=== PATIENT | female | born 1990 | race Caucasian/White ===

== ENCOUNTER → 2022-10-06 | Outpatient (CLI) | payer OTHER ==
[~2022-10-06] MED LIST: ANUS2.5C2 PR; DOCU5LIQ PO; IBUP80TA PO; LANOOIL2 TOP; MAPA500T17 PO; MOM30SS PO; MOTR200T44 PO; PRENTAB74 PO
[2022-10-06 14:16] LABS: FREE T4 1.04 NG/DL (0.89-1.76); THYROID STIMULATING HORMONE 2.308 uIU/ML (0.55-4.78)
[2022-10-06 14:17] LABS: ALBUMIN 3.9 G/DL (3.2-5.2); ALKALINE PHOSPHATASE 80 U/L (46-116); ALT/SGPT 29 U/L (7.0-40); AST/SGOT 17 U/L (<34); BILIRUBIN,TOTAL 0.4 MG/DL (0.3-1.2); BLOOD UREA NITROGEN 10 MG/DL (9-23); CALCIUM LEVEL 9.3 MG/DL (8.5-10.1); CARBON DIOXIDE LEVEL 25 MMOL/L (20-31); CHLORIDE LEVEL 106 MMOL/L (98-107); GLOMERULAR FILTRATION RATE > 60.0 (>60); GLUCOSE, FASTING 111 MG/DL (60-100); POTASSIUM SERUM 4.4 MMOL/L (3.5-5.1); SODIUM LEVEL 141 MMOL/L (136-145)
[2022-10-06 14:27] LABS: BASO # 0.1 10^3/uL (0.0-0.2); BASO % 0.6 % (0.0-1.0); EOS # 0.1 10^3/uL (0.0-0.5); EOS % 1.2 % (0.0-3.0); HEMATOCRIT 44.3 % (36.0-47.0); HEMOGLOBIN 13.9 g/dl (12.0-15.5); LYMPH # 1.9 10^3/uL (1.5-5.0); MEAN CORPUSCULAR HEMOGLOBIN 28.4 pg (27.0-33.0); MEAN CORPUSCULAR HGB CONC 31.4 g/dl (32.0-36.5); MEAN CORPUSCULAR VOLUME 90.6 fl (80.0-96.0); MONO # 0.6 10^3/uL (0.0-0.8); NEUTROPHILS # 7.8 10^3/uL (1.5-8.5); NEUTROPHILS % 73.2 % (36.0-66.0); PLATELET COUNT, AUTOMATED 285 10^3/uL (150-450); RED BLOOD COUNT 4.89 10^6/uL (4.00-5.40); WHITE BLOOD COUNT 10.7 10^3/uL (4.0-10.0)
== END ==
LOC: M PLALAB 09:52
PROVIDERS: ATTEND Nurse Practitioner Family
DX: R63.5 Abnormal weight gain (principal)

== ENCOUNTER → 2022-10-08 | Outpatient (CLI) | payer OTHER ==
[2022-10-08 13:54] LABS: HEMOGLOBIN A1c 5.1 % (4.0-6.0)
== END ==
LOC: M PLALAB 11:16
PROVIDERS: ATTEND Nurse Practitioner Family
DX: R73.01 Impaired fasting glucose (principal)

== ENCOUNTER → 2022-11-18 | Outpatient (REF) | payer OTHER | LOC: M LAB REF 17:09 | PROVIDERS: ATTEND Nurse Practitioner Family | DX: Z01.419 Encounter for gynecological examination (general) (routine) without abnormal findings (principal); J02.9 Acute pharyngitis, unspecified ==

== ENCOUNTER → 2023-10-28 | Outpatient (REF) | payer OTHER | LOC: M LAB REF 16:55 | PROVIDERS: ATTEND Registered Nurse | DX: R30.0 Dysuria (principal) ==

== ENCOUNTER → 2024-02-09 | Outpatient (REF) | payer OTHER | LOC: M LAB REF 17:25 | PROVIDERS: ATTEND Registered Nurse | DX: R35.0 Frequency of micturition (principal) ==

== ENCOUNTER → 2024-06-06 | Outpatient (CLI) | payer OTHER ==
[2024-06-06 13:02] LABS: BASO # 0.1 10^3/uL (0.0-0.2); BASO % 0.5 % (0.0-1.0); EOS # 0.1 10^3/uL (0.0-0.5); EOS % 0.7 % (0.0-3.0); HEMATOCRIT 43.3 % (36.0-47.0); LYMPH % 20.8 % (24.0-44.0); MEAN CORPUSCULAR HEMOGLOBIN 28.4 pg (27.0-33.0); MEAN CORPUSCULAR HGB CONC 32.3 g/dl (32.0-36.5); MEAN CORPUSCULAR VOLUME 87.8 fl (80.0-96.0); MONO # 0.6 10^3/uL (0.0-0.8); MONO % 6.6 % (2.0-8.0); NEUTROPHILS # 6.8 10^3/uL (1.5-8.5); NEUTROPHILS % 70.1 % (36.0-66.0); PLATELET COUNT, AUTOMATED 326 10^3/uL (150-450); RED BLOOD COUNT 4.93 10^6/uL (4.00-5.40); WHITE BLOOD COUNT 9.7 10^3/uL (4.0-10.0)
[2024-06-06 13:11] LABS: HEMOGLOBIN A1c 5.1 % (4.0-6.0)
[2024-06-06 13:27] LABS: ALBUMIN 3.8 G/DL (3.2-5.2); ALKALINE PHOSPHATASE 87 U/L (35-104); ALT/SGPT 33 U/L (7.0-40); AST/SGOT 14 U/L (<34); BILIRUBIN,TOTAL 0.8 MG/DL (0.3-1.2); BLOOD UREA NITROGEN 10 MG/DL (9-23); CALCIUM LEVEL 9.7 MG/DL (8.5-10.1); CARBON DIOXIDE LEVEL 26 MMOL/L (20-31); CHLORIDE LEVEL 109 MMOL/L (98-107); CREATININE FOR GFR 0.91 MG/DL (0.55-1.30); GLOMERULAR FILTRATION RATE > 60.0 (>60); GLUCOSE, FASTING 86 MG/DL (60-100); POTASSIUM SERUM 4.6 MMOL/L (3.5-5.1); SODIUM LEVEL 139 MMOL/L (136-145); TOTAL PROTEIN 7.8 G/DL (5.7-8.2)
[2024-06-06 13:28] LABS: THYROGLOBULIN ANTIBODY < 15.0 U/ML (<60.0); THYROID STIMULATING HORMONE 2.734 uIU/ML (0.55-4.78)
[2024-06-06 13:29] LABS: FREE T4 1.22 NG/DL (0.89-1.76)
== END ==
LOC: M PLALAB 11:43
PROVIDERS: ATTEND Registered Nurse
DX: R53.83 Other fatigue (principal)

== ENCOUNTER 2025-02-21 07:36 | Inpatient (IN) | payer OTHER ==
[~2025-02-21] VITALS: Ht 165.1 cm; Wt 84.4 kg
[2025-02-21] MEDS ORDERED: SERT25TA21 PO (07:42)
[2025-02-21] MEDS ORDERED: NORE1TAB7 PO (07:42)
[2025-02-21 08:08] LABS: BASO # 0.0 10^3/uL (0.0-0.2); BASO % 0.3 % (0.0-1.0); EOS # 0.1 10^3/uL (0.0-0.5); EOS % 0.7 % (0.0-3.0); LYMPH # 1.9 10^3/uL (1.5-5.0); LYMPH % 16.4 % (24.0-44.0); MONO # 0.9 10^3/uL (0.0-0.8); MONO % 7.5 % (2.0-8.0); NEUTROPHILS # 8.4 10^3/uL (1.5-8.5); NEUTROPHILS % 74.6 % (36.0-66.0); PLATELET COUNT, AUTOMATED 208 10^3/uL (150-450)
[2025-02-21] MEDS: PANTOPRAZOLE 40MG VIAL IV ONE (08:11)
[2025-02-21 08:40] LABS: ALT/SGPT 24 U/L (7.0-40); AST/SGOT 20 U/L (<34); CALCIUM LEVEL 9.1 MG/DL (8.5-10.1); CARBON DIOXIDE LEVEL 24 MMOL/L (20-31); CHLORIDE LEVEL 104 MMOL/L (98-107); CREATININE FOR GFR 0.81 MG/DL (0.55-1.30); GLOMERULAR FILTRATION RATE > 90.0 (>60); HCG, SERUM QUANTITATIVE < 2.6 MIU/ML (<4.2); POTASSIUM SERUM 3.9 MMOL/L (3.5-5.1); SODIUM LEVEL 139 MMOL/L (136-145)
[2025-02-21] MEDS ORDERED: ISOVUE-370 76% 100 ML VIAL As Ordered ONE (08:48)
[2025-02-21 09:16] LABS: PROTEIN, URINE MANUAL REFLEX 1+ mg/dL (NEGATIVE); SP GRAVITY,URINE MANUAL REFLEX 1.025 (1.002-1.035)
[2025-02-21 09:17] LABS: KETONE, URINE MANUAL REFLEX NEGATIVE (NEGATIVE); NITRITE, URINE MANUAL RFX NEGATIVE (NEGATIVE); UROBILINOGEN, UA MANUAL REFLEX NORMAL (NORMAL)
[2025-02-21 09:25] LABS: WBC, URINE MAN RFX 40-50 /hpf (0-3)
[2025-02-21 09:26] LABS: HYALINE CAST, URINE RFX NONE SEEN /lpf (0-1); MICROSCOPIC EXAM RFX PERFORMED; SQUAMOUS EPITHELIAL URINE RFX LARGE AMOUNT /hpf (SMALL AMT)
[2025-02-21] MEDS ORDERED: HOME MED LIST COMPLETE! XX SCH (10:05)
[2025-02-21 10:11] LABS: INR 0.97
[2025-02-21] MEDS: ENOXAPARIN 100 MG/1 ML SYRINGE (J1650 PER 10MG) SC ONE (10:24)
[2025-02-21 11:14] LABS: C REACTIVE PROTEIN QUANTITATIV 8.06 MG/DL (<1.0)
[2025-02-21 11:23] LABS: ERYTHROCYTE SEDIMENTATION RATE 42 mm/hr (0-20)
[2025-02-21] MEDS: NS (Normal Saline) 0.9% 1,000 ML IV SCH (11:50)
[2025-02-21 13:05] VITALS: BP 132/81; TEMP 98.1; O2SAT 97
[2025-02-21] MEDS: MORPHINE 2 MG/ML 1 ML VIAL IV PRN (13:36)
[2025-02-21 19:55] VITALS: BP 118/80; TEMP 98.8; O2SAT 98
[2025-02-21] MEDS: ENOXAPARIN 80 MG/0.8 ML SYRINGE (J1650 PER 10MG) SC SCH (22:40)
[2025-02-22 04:20] VITALS: BP 114/58; TEMP 98.8; O2SAT 97
[2025-02-22 06:05] LABS: PLATELET COUNT, AUTOMATED 186 10^3/uL (150-450)
[2025-02-22 06:19] LABS: CALCIUM LEVEL 8.5 MG/DL (8.5-10.1); CARBON DIOXIDE LEVEL 26 MMOL/L (20-31); CHLORIDE LEVEL 106 MMOL/L (98-107); CREATININE FOR GFR 0.79 MG/DL (0.55-1.30); GLOMERULAR FILTRATION RATE > 90.0 (>60); MAGNESIUM LEVEL 1.8 MG/DL (1.8-2.4); POTASSIUM SERUM 4.1 MMOL/L (3.5-5.1); SODIUM LEVEL 141 MMOL/L (136-145)
[2025-02-22] MEDS: CEFDINIR 300 MG CAP PO SCH (09:44)
[2025-02-22] MEDS: PANTOPRAZOLE 40MG VIAL IV SCH (09:44)
[2025-02-22 12:00] VITALS: BP 130/89; TEMP 98.1; O2SAT 97
[2025-02-22] MEDS: ONDANSETRON 4MG 2ML VIAL IV PRN (16:55)
[2025-02-22] MEDS: KETOROLAC 30 MG/ML 1 ML VIAL IV SCH (16:55)
[2025-02-22 18:51] LABS: CARDIOLIPIN IGA ANTIBODY < 2.0 APL-U/mL (<20.0); CARDIOLIPIN IGG ANTIBODY < 2.0 GPL-U/mL (<20.0); CARDIOLIPIN IGM ANTIBODY < 2.0 MPL-U/mL (<20.0)
[2025-02-22 20:06] VITALS: BP 125/85; TEMP 98.1; O2SAT 97
[2025-02-22] MEDS: ACETAMINOPHEN 325 MG TAB PO PRN (20:23)
[2025-02-23 03:50] VITALS: BP 111/69; TEMP 97.9; O2SAT 98
[2025-02-23 12:00] VITALS: BP 111/70; TEMP 98.4; O2SAT 97
[2025-02-23 20:23] VITALS: BP 116/72; TEMP 98.2; O2SAT 97
[2025-02-24] VITALS (7 sets, daily range): BP systolic 117–129; BP diastolic 74–84; TEMP 97.7–98.2; O2SAT 96–99
[2025-02-24] MEDS: MORPHINE 2 MG/ML 1 ML VIAL IV PRN (06:02)
[2025-02-24 06:41] LABS: BASO # 0.0 10^3/uL (0.0-0.2); BASO % 0.3 % (0.0-1.0); EOS # 0.1 10^3/uL (0.0-0.5); EOS % 1.4 % (0.0-3.0); LYMPH # 1.4 10^3/uL (1.5-5.0); LYMPH % 19.0 % (24.0-44.0); MONO # 0.6 10^3/uL (0.0-0.8); MONO % 8.1 % (2.0-8.0); NEUTROPHILS # 5.2 10^3/uL (1.5-8.5); NEUTROPHILS % 70.7 % (36.0-66.0); PLATELET COUNT, AUTOMATED 184 10^3/uL (150-450)
[2025-02-24 07:19] LABS: CALCIUM LEVEL 8.9 MG/DL (8.5-10.1); CARBON DIOXIDE LEVEL 25 MMOL/L (20-31); CHLORIDE LEVEL 108 MMOL/L (98-107); CREATININE FOR GFR 0.82 MG/DL (0.55-1.30); GLOMERULAR FILTRATION RATE > 90.0 (>60); MAGNESIUM LEVEL 1.9 MG/DL (1.8-2.4); POTASSIUM SERUM 4.5 MMOL/L (3.5-5.1); SODIUM LEVEL 144 MMOL/L (136-145)
[2025-02-24] MEDS ORDERED: ROCURONIUM BROMIDE 50MG/5ML VIAL As Ordered ONE (09:12)
[2025-02-24] MEDS ORDERED: dexAMETHasone 4 MG/ML 1 ML VIAL As Ordered ONE (09:12)
[2025-02-24] MEDS ORDERED: ONDANSETRON 4MG 2ML VIAL As Ordered ONE (09:12)
[2025-02-24] MEDS ORDERED: LIDOCAINE 2% 100 MG/5 ML SDV (FOR ANES.) As Ordered ONE (09:12)
[2025-02-24] MEDS ORDERED: MIDAZOLAM INJ 2 MG/2 ML VIAL As Ordered ONE (09:12)
[2025-02-24] MEDS ORDERED: ACETAMINOPHEN 1000MG/100ML IV BAG As Ordered ONE (09:13)
[2025-02-24] MEDS ORDERED: SUGAMMADEX SODIUM 500 MG/5 ML VIAL As Ordered ONE (12:28)
[2025-02-24] MEDS: ceFAZolin SODIUM 2 GM in DEXTROSE 5% (D5W) ADV/MINI-BAG 50 ML IV ONE (13:29)
[2025-02-24 13:57] LABS: PROTEIN S ANTIGEN FREE 63 % normal (50-147); PROTEIN S ANTIGEN TOTAL 73 % normal (70-140)
[2025-02-24] MEDS: HEPARIN 1,000 UNITS/ML 10 ML VIAL (FOR RADIOLOGY & DIALYSIS ONLY) IV PRN (14:44)
[2025-02-24] MEDS: ISOVUE-300 61% 100 ML VIAL IV SCH (15:14)
[2025-02-24] MEDS: LIDOCAINE 1% MDV 20 ML VIAL SC SCH (15:15)
[2025-02-24] MEDS: NS (Normal Saline) 0.9% 1,000 ML IV SCH (15:20)
[2025-02-24] MEDS ORDERED: ONDANSETRON 4MG 2ML VIAL IV PRN (15:45)
[2025-02-24] MEDS ORDERED: HYDROMORPHONE HCL 0.5 MG/0.5 ML SYRINGE IV PRN (15:45)
[2025-02-24] MEDS: ENOXAPARIN 80 MG/0.8 ML SYRINGE (J1650 PER 10MG) SC SCH (19:59)
[2025-02-25 00:44] VITALS: BP 114/73; TEMP 97.9; O2SAT 95
[2025-02-25 03:48] VITALS: BP 113/72; TEMP 97.9; O2SAT 97
[2025-02-25 06:15] LABS: BASO # 0.0 10^3/uL (0.0-0.2); BASO % 0.3 % (0.0-1.0); EOS # 0.0 10^3/uL (0.0-0.5); EOS % 0.3 % (0.0-3.0); LYMPH # 1.1 10^3/uL (1.5-5.0); LYMPH % 14.1 % (24.0-44.0); MONO # 0.6 10^3/uL (0.0-0.8); MONO % 6.9 % (2.0-8.0); NEUTROPHILS # 6.2 10^3/uL (1.5-8.5); NEUTROPHILS % 77.6 % (36.0-66.0); PLATELET COUNT, AUTOMATED 260 10^3/uL (150-450)
[2025-02-25 06:46] LABS: CALCIUM LEVEL 8.7 MG/DL (8.5-10.1); CARBON DIOXIDE LEVEL 27 MMOL/L (20-31); CHLORIDE LEVEL 105 MMOL/L (98-107); CREATININE FOR GFR 0.74 MG/DL (0.55-1.30); GLOMERULAR FILTRATION RATE > 90.0 (>60); MAGNESIUM LEVEL 1.9 MG/DL (1.8-2.4); POTASSIUM SERUM 4.3 MMOL/L (3.5-5.1); SODIUM LEVEL 142 MMOL/L (136-145)
[2025-02-25 08:00] VITALS: BP 121/71; TEMP 98.1; O2SAT 97
[2025-02-25 08:14] LABS: DRVV SCREEN 43.9 SECONDS
[2025-02-25 08:30] LABS: PTT LUPUS TYPE ANTICOAG SCREEN 1.16 (0-1.20)
[2025-02-25] MEDS: APIXABAN 5 MG TAB PO SCH (08:44)
[2025-02-25 11:41] VITALS: BP 120/71; TEMP 98.1; O2SAT 98
[2025-02-25] MEDS ORDERED: LOVE1INJ SC (12:09)
[2025-02-25] MEDS ORDERED: PERC10TA26 PO (12:10)
[2025-02-25 15:56] VITALS: BP 117/72; TEMP 98.1; O2SAT 97
[2025-02-25] MEDS: ENOXAPARIN 80 MG/0.8 ML SYRINGE (J1650 PER 10MG) SC SCH (19:57)
[2025-02-25 20:17] VITALS: BP 138/90; TEMP 98.2; O2SAT 98
[2025-02-26] VITALS: BP 116/74; TEMP 98.1; O2SAT 97
[2025-02-26 03:44] VITALS: BP 100/61; TEMP 97.7; O2SAT 98
[2025-02-26 08:00] VITALS: BP 118/80; TEMP 98.2; O2SAT 100
[2025-02-26 23:57] LABS: ANTI THROMBIN 3 ANTIGEN IMMUNO 69 % normal (80-120); ANTI THROMBIN 3 FUNCT ACTIVITY 102 % normal (80-135)
[2025-02-27 16:42] LABS: PROTEIN C ANTIGEN 72 % normal (70-140)
[2025-02-28 15:34] LABS: FACTOR V LEIDEN FOR MEDINET NEGATIVE
[2025-02-28 16:20] LABS: FACTOR II PROTHROMBIN GENE AN NEGATIVE
== END 2025-02-26 11:27 | disposition home or self-care (01) | DRG 405 ==
LOC: M ED 07:36 → M ED INP 11:48 → M MSPAV 13:00
PROVIDERS: ADMIT Student in an Organized Health Care Education/Training Program; ATTEND Student in an Organized Health Care Education/Training Program
PROC: 06C Lower Veins, Extirpation (ICD-10-PCS; 2025-02-24)
PROC: 06C83ZZ Extirpation of Matter from Portal Vein, Percutaneous Approach (ICD-10-PCS; 2025-02-24)
PROC: 06183J4 Bypass Portal Vein to Hepatic Vein with Synthetic Substitute, Percutaneous Approach (ICD-10-PCS; principal; 2025-02-24 12:00)
DX: I81 Portal vein thrombosis (principal); K55.011 Focal (segmental) acute (reversible) ischemia of small intestine; F32.A Depression, unspecified; Z79.899 Other long term (current) drug therapy; Z90.49 Acquired absence of other specified parts of digestive tract

== ENCOUNTER → 2025-03-13 | Outpatient (CLI) | payer OTHER ==
[~2025-03-13] MED LIST changes: +LOVE1INJ SC; +NORE1TAB7 PO; +PERC10TA26 PO; +SERT25TA21 PO
== END ==
LOC: M RAD 08:38
PROVIDERS: ATTEND Radiology Diagnostic Radiology
DX: Z95.828 Presence of other vascular implants and grafts (principal); K76.0 Fatty (change of) liver, not elsewhere classified; R16.1 Splenomegaly, not elsewhere classified

== ENCOUNTER → 2025-03-15 | Outpatient (POV) | payer OTHER ==
[~2025-03-15] VITALS: Ht 165.1 cm; Wt 80.5 kg
[~2025-03-15] MED LIST changes: +CARDIAC STRESS TEST RESCUE BOX 1 KIT EA XX ONE
[2025-03-15 14:12] VITALS: BP 112/82; O2SAT 98
== END ==
LOC: M IRPOV 13:48
PROVIDERS: ATTEND Radiology Diagnostic Radiology
DX: Z48.815 Encounter for surgical aftercare following surgery on the digestive system (principal); I81 Portal vein thrombosis; Z79.01 Long term (current) use of anticoagulants; Z79.3 Long term (current) use of hormonal contraceptives

== ENCOUNTER → 2025-05-02 | Outpatient (CLI) | payer OTHER ==
[~2025-05-02] MED LIST changes: -CARDIAC STRESS TEST RESCUE BOX 1 KIT EA XX ONE; +ELIQ5TAB
[2025-05-02 12:42] LABS: PLATELET COUNT, AUTOMATED 267 10^3/uL (150-450)
[2025-05-02 15:32] LABS: HCG, SERUM QUALITATIVE NEGATIVE (NEGATIVE)
[2025-05-02 15:35] LABS: ALT/SGPT 24 U/L (7.0-40); AST/SGOT 21 U/L (<34); CALCIUM LEVEL 9.9 MG/DL (8.5-10.1); CARBON DIOXIDE LEVEL 27 MMOL/L (20-31); CHLORIDE LEVEL 106 MMOL/L (98-107); CHOLESTEROL LEVEL 162 MG/DL (<200); CHOLESTEROL RISK RATIO 3.04 (<5); CREATININE FOR GFR 0.75 MG/DL (0.55-1.30); GLOMERULAR FILTRATION RATE > 90.0 (>60); LDL CHOLESTEROL 92.6 MG/DL (<100); NON-HDL-C 108.8 MG/DL; POTASSIUM SERUM 4.2 MMOL/L (3.5-5.1); SODIUM LEVEL 142 MMOL/L (136-145); TRIGLYCERIDES LEVEL 81 MG/DL (<150)
== END ==
LOC: M LAB 11:30
PROVIDERS: ATTEND Physician Assistant
DX: L70.0 Acne vulgaris (principal)

== ENCOUNTER → 2025-05-29 | Outpatient (REF) | LOC: M EMP 10:17 | PROVIDERS: ATTEND Family Medicine | DX: Z01.89 Encounter for other specified special examinations (principal) ==

== ENCOUNTER → 2025-06-21 | Outpatient (POV) | payer OTHER ==
[~2025-06-21] MED LIST changes: +BACT800T5 PO; +SPIR50TA4; +TRET0.046
== END ==
LOC: M IRPOV 09:00
PROVIDERS: ATTEND Radiology Diagnostic Radiology
DX: Z09 Encounter for follow-up examination after completed treatment for conditions other than malignant neoplasm (principal); Z95.828 Presence of other vascular implants and grafts; Z79.01 Long term (current) use of anticoagulants; Z79.899 Other long term (current) drug therapy; Z87.891 Personal history of nicotine dependence; Z86.718 Personal history of other venous thrombosis and embolism; Z98.890 Other specified postprocedural states

== ENCOUNTER → 2025-06-30 | Outpatient (REF) | payer OTHER ==
[~2025-06-30] MED LIST changes: -BACT800T5 PO; -SPIR50TA4; -TRET0.046
[2025-06-30 15:43] LABS: CALCIUM LEVEL 9.6 MG/DL (8.5-10.1); CARBON DIOXIDE LEVEL 27 MMOL/L (20-31); CHLORIDE LEVEL 105 MMOL/L (98-107); CREATININE FOR GFR 0.74 MG/DL (0.55-1.30); GLOMERULAR FILTRATION RATE > 90.0 (>60); POTASSIUM SERUM 4.2 MMOL/L (3.5-5.1); SODIUM LEVEL 138 MMOL/L (136-145)
== END ==
LOC: M SFHCDERM 14:54
PROVIDERS: ATTEND Physician Assistant
DX: Z79.899 Other long term (current) drug therapy (principal)

== ENCOUNTER → 2025-07-19 | Outpatient (CLI) | payer OTHER | LOC: M RAD 08:33 | PROVIDERS: ATTEND Radiology Diagnostic Radiology | DX: I81 Portal vein thrombosis (principal) ==